=== PATIENT | male | born 1980 | race Caucasian/White ===

== ENCOUNTER 2016-10-12 22:04 | Emergency (ER) | payer SELFPAY ==
--- NOTE | ~2016-10-12 | CR108 ---
[facility] A Service of [facility] & [facility] RADIOLOGY TEXT RESULTS PATIENT: EMIR SHIPLEY LOCATION: CFTX : 78 UNIT #: [id number] AGE: [address]: ALVARO RITTER APRN SEX: M ORDER DR: [id number] [facility] [address] [place], [place] [address] [id number] E MR#: [id number] Acc #: [id number] NAME: EMIR SHIPLEY : 1980 SEX: M STUDY DATE/TIME: 10/12/2016 21:39 UNIT: [facility] ROOM: STUDY DESCRIPTION: CR Finger 2 View 2nd Lt Attending Physician: Alvaro Ritter Aprn Ordering Physician: Alvaro Ritter Aprn Primary Care Physician: Primary Care Physician No MEDICAL IMAGING REPORT This report is preliminary unless electronic signature is present EXAM Left second digit 3 views HISTORY Finger laceration with wood working tool today. FINDINGS 3 views of the left second digit demonstrate no fracture. Satisfactory bone alignment. Soft tissue injury at the fingertip and mild soft tissue swelling proximal finger. No opaque soft tissue foreign body. Old healed fracture proximal shaft fifth metacarpal is incidentally noted. Dictated by... Brad Luis M.D. THIS IS AN ELECTRONICALLY VERIFIED REPORT Brad Luis M.D. at 10/13/2016 3:17 PM DFL/lyric TD: 10/13/2016 08:43 JOB #: [id number] MEDICAL IMAGING REPORT COPY
== END 2016-10-12 23:20 | disposition home or self-care (01) ==
LOC: CFTX 22:04
DX: S61.211A Laceration without foreign body of left index finger without damage to nail, initial encounter (principal); F17.210 Nicotine dependence, cigarettes, uncomplicated; W45.8XXA Other foreign body or object entering through skin, initial encounter; Y92.009 Unspecified place in unspecified non-institutional (private) residence as the place of occurrence of the external cause
CPT/HCPCS: 12001; 73140; 99283